=== PATIENT | male | born 1955 | race Caucasian/White ===

== ENCOUNTER → 2017-05-12 | Day surgery (SDC) | payer OTHER | END | disposition home or self-care (01) | LOC: ADM 05-08 13:15 → AMB-ENDOS 06:00 | DX: K51.811 Other ulcerative colitis with rectal bleeding (principal); K64.2 Third degree hemorrhoids ==

== ENCOUNTER → 2018-07-20 | Day surgery (SDC) | payer OTHER | END | disposition home or self-care (01) | LOC: ADM 07-13 13:00 → AMB-ENDOS 05:22 → ADM 13:00 → AMB-ENDOS 13:00 | DX: K51.811 Other ulcerative colitis with rectal bleeding (principal); K64.1 Second degree hemorrhoids ==

== ENCOUNTER 2019-10-18 07:34 | Day surgery (SDC) | payer OTHER | END 2019-10-18 12:45 | disposition home or self-care (01) | LOC: AMB-ENDOS 07:34 | PROVIDERS: ATTEND Colon & Rectal Surgery | DX: D12.8 Benign neoplasm of rectum (principal); K52.89 Other specified noninfective gastroenteritis and colitis ==